=== PATIENT | female | born 1990 | race Caucasian/White ===

== ENCOUNTER 2022-04-13 08:00 | Outpatient (CLI) | payer OTHER ==
--- NOTE | 2022-04-13 15:32 | XRAY Report ---
PROCEDURE: Wrist 3 View LT INDICATIONS: LEFT WRIST PAIN TECHNIQUE: 3 views of the wrist were acquired. COMPARISON: None FINDINGS: Bones: No fractures or dislocations. No suspicious bony lesions. Soft tissues: No suspicious soft tissue calcifications. IMPRESSION: No visualized acute fracture or dislocation. However, occult injury cannot be excluded. Recommend abigail rt interval imaging follow-up in 7-10 days as clinically indicated for additional evaluation. Reviewed by: Nenita Miranda MD on 04/13/2022 3:31 PM PDT Approved by: Nenita Miranda MD on 04/13/2022 3:31 PM PDT Station ID: [id number]
== END 2022-04-13 23:59 | disposition home or self-care (01) ==
LOC: DI.N 08:00
PROVIDERS: ATTEND Physician Assistant
DX: M77.8 Other enthesopathies, not elsewhere classified (principal)

== ENCOUNTER 2024-03-27 10:00 | Outpatient (CLI) | payer OTHER | END 2024-03-27 10:01 | disposition home or self-care (01) | LOC: LAB.N 10:00 | PROVIDERS: ATTEND Physician Assistant Medical | DX: H60.91 Unspecified otitis externa, right ear (principal) | CPT/HCPCS: 87070 ==